=== PATIENT | male | born 1945 | race Two or more races ===

== ENCOUNTER 2017-07-30 22:46 | Inpatient (IN) | payer OTHER ==
[~2017-07-30] VITALS: Ht 172.7 cm; Wt 49.9 kg
[~2017-07-30 22:46] MED LIST: B12 5,000 MCG1 EACH; CANABIS OIL; FOLBIC RF TABL1 EACH; FOLIC ACID0.4 MG; FOLIC ACID1 MG PO; INTEGRA PLUS C1 EACH PO; MULTIVITAMINS1 EAC9 PO; Neurin-Sl Tablet Sl SL; VIT C-BIOFLAVO1 EACH; [UNRECOGNIZED DRUG - OTHER]
[2017-08-02] MEDS ORDERED: INTEGRA PLUS C1 EACH PO (16:11)
== END 2017-08-02 16:31 | disposition home or self-care (01) | DRG 378 ==
LOC: ER 22:46 → MEDI 07-31 08:52
PROC: 30233N1 Transfusion of Nonautologous Red Blood Cells into Peripheral Vein, Percutaneous Approach (ICD-10-PCS; principal; 2017-07-31)
DX: K92.2 Gastrointestinal hemorrhage, unspecified (principal); E87.1 Hypo-osmolality and hyponatremia; C19 Malignant neoplasm of rectosigmoid junction; D50.0 Iron deficiency anemia secondary to blood loss (chronic); E86.0 Dehydration

== ENCOUNTER 2018-02-07 19:08 | Emergency (ER) | payer OTHER ==
[~2018-02-07] VITALS: Ht 172.7 cm; Wt 40.8 kg
== END 2018-02-07 22:31 | disposition home or self-care (01) ==
LOC: ER 19:08
DX: G89.3 Neoplasm related pain (acute) (chronic) (principal); C78.5 Secondary malignant neoplasm of large intestine and rectum; R10.13 Epigastric pain